=== PATIENT | male | born 1995 | race Caucasian/White ===

== ENCOUNTER 2019-08-26 14:09 | Emergency (ER) | payer SELFPAY ==
[~2019-08-26] VITALS: Ht 182.9 cm; Wt 122.5 kg
[2019-08-26] MEDS ORDERED: methylPREDNISolone SOD SUCC PF 125 MG/2 ML VIAL. IV ONE (14:30)
[2019-08-26] MEDS ORDERED: IV NORMAL SALINE 1000ML BAG 1,000 ML IV ONE (14:30)
[2019-08-26] MEDS ORDERED: ONDANSETRON PF 4 MG/2 ML VIAL. IV ONE (14:30)
[2019-08-26 15:12] LABS: BASO # 0.1 x10^3/uL (0.0-0.2); BASO % 1 % (0-3); EOS % 0 % (0-3); HEMATOCRIT 50.8 % (39.0-53.0); HEMOGLOBIN 17.5 g/dL (13.0-17.5); LYMPH # 2.1 x10^3/uL (1.0-4.8); LYMPH % 19 % (24-48); MEAN CORPUSCULAR HEMOGLOBIN 28 pg (25-35); MEAN CORPUSCULAR HGB CONC 34 g/dL (31-37); MEAN CORPUSCULAR VOLUME 82 fL (79-100); MONO # 0.7 x10^3/uL (0.0-1.1); MONO % 6 % (0-9); NEUT # 8.3 x10^3/uL (1.8-7.7); NEUT % 74 % (31-73); PLATELET COUNT 254 x10^3/uL (140-400); RED BLOOD COUNT 6.19 x10^6/uL (4.30-5.70); RED CELL DISTRIBUTION WIDTH 13.9 % (11.5-14.5); WHITE BLOOD COUNT 11.2 x10^3/uL (4.0-11.0)
[2019-08-26 15:15] LABS: GFR 92.6; POTASSIUM 4.2 mmol/L (3.5-5.1)
[2019-08-26 15:21] LABS: ALBUMIN 4.7 g/dL (3.4-5.0); ALBUMIN/GLOBULIN RATIO 1.1 (1.0-1.7); TOTAL BILIRUBIN 0.7 mg/dL (0.2-1.0); TOTAL PROTEIN 8.8 g/dL (6.4-8.2)
--- NOTE | 2019-08-26 15:58 | RAD ---
CT HEAD WO CONTRAST Clinical indications: Headache. History of meningitis. COMPARISON: None available. Technique: Noncontrast axial cross sectional scanning of the head was performed. PQRS compliance Statement One or more of the following individualized dose reduction techniques were utilized for this study: 1. Automated exposure control 2. Adjustment of the mA and/or kV according to patient size 3. Use of iterative reconstruction technique Findings: No acute intracranial hemorrhage or midline shift or mass-effect or hydrocephalus or extra-axial fluid collection is seen. No focal hypodense area or sulci effacement is seen to indicate an acute infarct or edema radiographically. No skull fracture or pneumocephalus is seen. No opacification of the mastoid sinuses or the middle ear cavities or the paranasal sinuses is seen. The maxillary sinuses are not completely seen in this study. Impression: No acute intracranial abnormality is seen. Electronically signed by: Darnell Hayward MD (08/26/2019 3:55 PM) [id number]
[2019-08-26] MEDS ORDERED: diphenhydrAMINE HCL 25 MG CAPSULE PO ONE (16:45)
[2019-08-26] MEDS ORDERED: KETOROLAC 30 MG/ML VIAL. IV ONE (16:45)
[2019-08-26] MEDS ORDERED: LABETALOL 20 MG/4 ML DISP.SYRIN. IVP ONE (16:45)
[2019-08-26 16:46] LABS: BARBITURATES NEG (NEG); BENZODIAZEPINES NEG (NEG); CANNABINOIDS POS (NEG); COCAINE NEG (NEG); METHADONE NEG (NEG); OPIATES NEG (NEG); PHENCYCLIDINE NEG (NEG)
[2019-08-26 16:50] LABS: AMPHETAMINE/METHAMPHETAMINE NEG (NEG)
[2019-08-26 17:08] LABS: BILIRUBIN,URINE SMALL (NEG); CLARITY,URINE CLOUDY; COLOR,URINE AMBER; NITRITE,URINE NEGATIVE (NEG); PROTEIN,URINE 100 mg/dL (NEG-TRACE); UROBILINOGEN,URINE 0.2 mg/dL (0.2 mg/dL)
[2019-08-26 17:19] LABS: SQUAMOUS EPITHELIAL CELL,UR MOD /LPF
[2019-08-26 17:20] LABS: BACTERIA,URINE MOD /HPF (0-FEW); RBC,URINE 0 /HPF (0-2)
--- NOTE | 2019-08-26 17:29 | PHYS DOC ---
Past Medical History Past Medical History: Migraines, Other Additional Past Medical Histor: menengitis Past Surgical History: Other Additional Past Surgical Histo: tubes in ears Additional Information: quit 2 months ago Alcohol Use: None Drug Use: Marijuana Social History Narrative: last use yesterday Adult General Chief Complaint Chief Complaint: HEADACHE HPI HPI Patient is a 24 year old male with history of migraine headaches who presents to the ED today complaining of 10 out of 10 frontal head pain that began this morning. Patient is also complaining of nausea with no vomiting. Denies any fever. Denies any neck pain or nuchal rigidity. He states he has slight photosensitivity. He also states he has noise sensitivity. Denies this being the worst headache in his life. Review of Systems Review of Systems Constitutional: Denies fever or chills [] Eyes: Denies change in visual acuity, redness, or eye pain [] HENT: Denies nasal congestion or sore throat [] Respiratory: Denies cough or shortness of breath [] Cardiovascular: No additional information not addressed in HPI [] GI: Reports nausea. Denies abdominal pain, nausea, bloody stools or diarrhea [] : Denies dysuria or hematuria [] Musculoskeletal: Denies back pain or joint pain [] Integument: Denies rash or skin lesions [] Neurologic: Reports headache, denies focal weakness or sensory changes [] All other systems were reviewed and found to be within normal limits, except as documented in this note. Current Medications Current Medications Current Medications Medications (Trade) Dose Ordered Sig/Susi Start Time Stop Time Status Last Admin Dose Admin Azithromycin (Zithromax) 1,000 mg 1X ONCE 08/26/19 17:30 08/26/19 17:32 DC Ceftriaxone Sodium (Rocephin) 1 gm 1X ONCE 08/26/19 17:30 08/26/19 17:32 DC Diphenhydramine HCl (Benadryl) 25 mg 1X ONCE 08/26/19 16:45 08/26/19 16:46 DC 08/26/19 16:54 25 MG Ketorolac Tromethamine (Toradol 30mg Vial) 30 mg 1X ONCE 08/26/19 16:45 08/26/19 16:46 DC 08/26/19 16:55 30 MG Labetalol HCl (Normodyne Iv Push) 10 mg 1X ONCE 9/25/19 16:45 08/26/19 16:46 DC 08/26/19 17:01 10 MG Methylprednisolone Sodium Succinate (SOLU-Medrol 125MG VIAL) 125 mg 1X ONCE 08/26/19 14:30 08/26/19 14:34 DC 08/26/19 15:20 125 MG Ondansetron HCl (Zofran) 4 mg 1X ONCE 08/26/19 14:30 08/26/19 14:34 DC 08/26/19 15:18 4 MG Sodium Chloride 1,000 ml @ 1,000 mls/hr 1X ONCE 08/26/19 14:30 08/26/19 15:29 DC 08/26/19 15:19 1,000 MLS/HR Allergies Allergies Allergies Coded Allergies Type Severity Reaction Last Updated Verified ibuprofen Allergy Unknown rash 08/26/19 Yes Physical Exam Physical Exam Constitutional: Well developed, well nourished, no acute distress, non-toxic appearance. [] HENT: Normocephalic, atraumatic, bilateral external ears normal, oropharynx moist, no oral exudates, nose normal. [] Eyes: PERRLA, EOMI, conjunctiva normal, no discharge. [] Neck: Normal range of motion, no tenderness, supple, no stridor. [] Cardiovascular:Heart rate regular rhythm, no murmur [] Lungs & Thorax: Bilateral breath sounds clear to auscultation [] Abdomen: Bowel sounds normal, soft, no tenderness, no masses, no pulsatile masses. [] Skin: Warm, dry, no erythema, no rash. [] Back: No tenderness, no CVA tenderness. [] Extremities: No tenderness, no cyanosis, no clubbing, ROM intact, no edema. [] Neurologic: Alert and oriented X 3, normal motor function, normal sensory function, no focal deficits noted. Cranial nerves II through XII intact Psychologic: Affect normal, judgement normal, mood normal. [] Current Patient Data Vital Signs Vital Signs Date Time Temp Pulse Resp B/P (MAP) Pulse Ox O2 Delivery O2 Flow Rate FiO2 08/26/19 17:01 75 200/122 08/26/19 16:30 16 97 08/26/19 14:20 98.3 Room Air 98.3 Lab Values Laboratory Tests Test 08/26/19 15:00 08/26/19 16:20 White Blood Count 11.2 x10^3/uL (4.0-11.0) H Red Blood Count 6.19 x10^6/uL (4.30-5.70) H Hemoglobin 17.5 g/dL (13.0-17.5) Hematocrit 50.8 % (39.0-53.0) Mean Corpuscular Volume 82 fL (79-100) Mean Corpuscular Hemoglobin 28 pg (25-35) Mean Corpuscular Hemoglobin Concent 34 g/dL (31-37) Red Cell Distribution Width 13.9 % (11.5-14.5) Platelet Count 254 x10^3/uL (140-400) Neutrophils (%) (Auto) 74 % (31-73) H Lymphocytes (%) (Auto) 19 % (24-48) L Monocytes (%) (Auto) 6 % (0-9) Eosinophils (%) (Auto) 0 % (0-3) Basophils (%) (Auto) 1 % (0-3) Neutrophils # (Auto) 8.3 x10^3/uL (1.8-7.7) H Lymphocytes # (Auto) 2.1 x10^3/uL (1.0-4.8) Monocytes # (Auto) 0.7 x10^3/uL (0.0-1.1) Eosinophils # (Auto) 0.0 x10^3/uL (0.0-0.7) Basophils # (Auto) 0.1 x10^3/uL (0.0-0.2) Sodium Level 142 mmol/L (136-145) Potassium Level 4.2 mmol/L (3.5-5.1) Chloride Level 105 mmol/L (98-107) Carbon Dioxide Level 24 mmol/L (21-32) Anion Gap 13 (6-14) Blood Urea Nitrogen 16 mg/dL (8-26) Creatinine 1.0 mg/dL (0.7-1.3) Estimated GFR (Cockcroft-Gault) 92.6 BUN/Creatinine Ratio 16 (6-20) Glucose Level 104 mg/dL (70-99) H Calcium Level 10.0 mg/dL (8.5-10.1) Total Bilirubin 0.7 mg/dL (0.2-1.0) Aspartate Amino Transferase (AST) 28 U/L (15-37) Alanine Aminotransferase (ALT) 64 U/L (16-63) H Alkaline Phosphatase 62 U/L (46-116) Total Protein 8.8 g/dL (6.4-8.2) H Albumin 4.7 g/dL (3.4-5.0) Albumin/Globulin Ratio 1.1 (1.0-1.7) Ethyl Alcohol Level < 10 mg/dL (0-10) Urine Collection Type Unknown Urine Color Lesly Urine Clarity Cloudy Urine pH 5.0 Urine Specific [place] >=1.030 Urine Protein 100 mg/dL (NEG-TRACE) Urine Glucose (UA) Negative mg/dL (NEG) Urine Ketones (Stick) Negative mg/dL (NEG) Urine Blood Negative (NEG) Urine Nitrite Negative (NEG) Urine Bilirubin Small (NEG) Urine Urobilinogen Dipstick 0.2 mg/dL (0.2 mg/dL) Urine Leukocyte Esterase Small (NEG) Urine RBC 0 /HPF (0-2) Urine WBC 5-10 /HPF (0-4) Urine Squamous Epithelial Cells Mod /LPF Urine Bacteria Mod /HPF (0-FEW) Urine Mucus Marked /LPF Urine Opiates Screen Neg (NEG) Urine Methadone Screen Neg (NEG) Urine Barbiturates Neg (NEG) Urine Phencyclidine Screen Neg (NEG) Urine Amphetamine/Methamphetamine Neg (NEG) Urine Benzodiazepines Screen Neg (NEG) Urine Cocaine Screen Neg (NEG) Urine Cannabinoids Screen Pos (NEG) Urine Ethyl Alcohol Neg (NEG) Laboratory Tests 08/26/19 15:00 Laboratory Tests 08/26/19 15:00 EKG EKG [] Radiology/Procedures Radiology/Procedures []PROCEDURE: CT HEAD WO CONTRAST CT HEAD WO CONTRAST Clinical indications: Headache. History of meningitis. COMPARISON: None available. Technique: Noncontrast axial cross sectional scanning of the head was performed. PQRS compliance Statement One or more of the following individualized dose reduction techniques were utilized for this study: 1. Automated exposure control 2. Adjustment of the mA and/or kV according to patient size 3. Use of iterative reconstruction technique Findings: No acute intracranial hemorrhage or midline shift or mass-effect or hydrocephalus or extra-axial fluid collection is seen. No focal hypodense area or sulci effacement is seen to indicate an acute infarct or edema radiographically. No skull fracture or pneumocephalus is seen. No opacification of the mastoid sinuses or the middle ear cavities or the paranasal sinuses is seen. The maxillary sinuses are not completely seen in this study. Impression: No acute intracranial abnormality is seen. Electronically signed by: Rene Hayward MD (08/26/2019 3:55 PM) [id number] DICTATED and SIGNED BY: RENE HAYWARD MD DATE: 08/26/19 1555 Course & Med Decision Making Course & Med Decision Making Pertinent Labs and Imaging studies reviewed. (See chart for details) This is a 24-year-old male patient presenting to the ED today complaining of a headache that began this morning. Patient has history of migraine headaches. On arrival to the ED blood pressure was noted to be high at 198/114, heart rate was 89, temperature 98.3, respiration 18 on room air, O2 sats 97% Patient denies any chest pain. Denies any shortness of breath. CBC with a WBC of 11.2, CMP with no acute findings, urine analysis is noted for small amount of leukocytes as well as WBCs 5-10 considering his age we send the urine to lab for STD check, in the meantime patient was treated in the emergency room with Rocephin and azithromycin. He was also given blood pressure medications. Blood pressure came down to 179/106. He was also given a liter of fluid Solu-Medrol and Zofran. He also received Toradol. Blood pressure came down to 179/106, I spoke to patient about blood pressure management. At this point I recommended he follows up with a primary care doctor or local clinics. I Was not comfortable putting him on any blood pressure medications because of compliance as well as side effects. We discussed dietary measures including weight loss, exercise, and diet. Dragon Disclaimer Dragon Disclaimer This electronic medical record was generated, in whole or in part, using a voice recognition dictation system. Departure Departure Impression: Primary Impression: Headache Additional Impression: Hypertension Disposition: 01 HOME, SELF-CARE Condition: STABLE Referrals: VIVIANA CHRISTIANSEN MD (PCP) Follow-up with your doctor as soon as you can Patient Instructions: Headache, FAQs, Hypertension Additional Instructions: You were evaluated in the emergency room for headache and noted to have high blood pressure. Please establish care with a primary care doctor and follow-up. Consider exercise, diet, and weight loss. Your urine was also noted to have infection which we treated in the emergency room. You can take over the counter pain relievers as needed Problem Qualifiers Primary Impression: Headache Headache type: unspecified Headache chronicity pattern: unspecified pattern Intractability: not intractable Qualified Codes: R51 - Headache Additional Impression: Hypertension Hypertension type: unspecified Qualified Codes: I10 - Essential (primary) hypertension KAMINI PATEL APRN Aug 26, 2019 17:29
[2019-08-26] MEDS ORDERED: AZITHROMYCIN 250 MG TABLET. PO ONE (17:30)
[2019-08-26] MEDS ORDERED: cefTRIAXone IV Push 1 GM VIAL. IVP ONE (17:30)
[2019-08-26 17:55] VITALS: BP 176/119
== END 2019-08-26 17:55 | disposition home or self-care (01) ==
LOC: ER 14:09
DX: G43.909 Migraine, unspecified, not intractable, without status migrainosus (principal); Z87.891 Personal history of nicotine dependence; Z88.6 Allergy status to analgesic agent; Z96.22 Myringotomy tube(s) status
CPT/HCPCS: 36415; 70450; 80053; 80307; 81001; 85025; 87491; 87591; 96374; 96375; 99285; G0480; J0696; J1885; J2405; J2930; J3490; J7030; Q0144; Q0163